=== PATIENT | female | born 2000 | race Caucasian/White ===

== ENCOUNTER 2023-10-28 13:49 | Outpatient (CLI) | payer BC ==
[~2023-10-28] VITALS: Ht 157.5 cm; Wt 148.2 kg
[~2023-10-28 13:49] MED LIST: GLUCOPHAGE1000 MG PO; LANTUS SOLOS100 U/ML SQ; NOVOLOG FLEX100 U/ML SQ; PRENATAL TABLET PO
[2023-10-28 14:20] VITALS: BP 118/71; PULSE 90
[2023-10-28] MEDS ORDERED: LR 1,000 ML IV PRN (14:30)
[2023-10-28 14:35] VITALS: BP 123/70; PULSE 91
[2023-10-28 15:00] VITALS: BP 110/66; PULSE 113; TEMP 98.5
[2023-10-28 15:22] LABS: BASO % 0.2 % (0.0-2.0); EOS # 0.1 K/mm3 (0.0-0.7); EOS % 0.5 % (0.0-4.0); GRAN # 8.4 K/mm3 (1.4-6.5); GRAN % 76.4 % (42.2-75.2); HEMOGLOBIN 11.4 g/dl (12.5-16.0); LYMPH # 1.6 K/mm3 (1.2-3.4); LYMPH % 14.6 % (20.0-51.0); MEAN CELL VOLUME 80 fl (80.0-100.0); MEAN CORPUSCULAR HEMOGLOBIN 26 pg (27-31); MEAN CORPUSCULAR HGB CONC 33 g/dl (33.0-37.0); MEAN PLATELET VOLUME 10.1 fl (7.4-10.4); MONO # 0.8 K/mm3 (0.1-0.6); MONO % 7.6 % (1.7-9.3); PLATELET COUNT 290 K/mm3 (130-400); RED BLOOD COUNT 4.35 M/mm3 (4.10-5.30); REDCELL DISTRIBUTION WIDTH-CV 13.2 % (11.5-14.5)
[2023-10-28 15:24] LABS: HEMATOCRIT 34.9 % (37.0-47.0)
[2023-10-28 15:28] LABS: ALBUMIN 2.3 gm/dL (3.5-5.0); BILIRUBIN,TOTAL 0.3 mg/dL (0.2-1.2); CALCIUM 7.9 mg/dL (8.4-10.2); CREATININE, serum 0.58 mg/dL (0.57-1.11); TOTAL PROTEIN 6.1 gm/dL (6.2-8.1)
[2023-10-28 16:00] VITALS: BP 135/85; PULSE 103
--- NOTE | 2023-10-28 16:21 | NUR ---
1600 ALL DISCHARGE INSTRUCTIONS GIVEN TO PATIENT WITH VERBAL UNDERSTNDING. ORDERS FROM DR DIXON. FHT 130 BBAY ACTIVE. BP 135/85
== END 2023-10-28 16:10 | disposition home or self-care (01) ==
LOC: LDRO 13:49
PROVIDERS: Obstetrics & Gynecology
DX: Z34.93 Encounter for supervision of normal pregnancy, unspecified, third trimester (principal); Z3A.38 38 weeks gestation of pregnancy

== ENCOUNTER 2023-11-03 05:15 | Inpatient (IN) | payer BC ==
[~2023-11-03] VITALS: Ht 157.6 cm; Wt 148.2 kg
[2023-11-03] VITALS (17 sets, daily range): BP systolic 92–143; BP diastolic 55–87; PULSE 78–109; TEMP 98.2–98.5
--- NOTE | 2023-11-03 05:28 | NUR ---
PT PRESENTS TO L&D FOR SCHEDULED C/S. PT CHANGED INTO GOWN TO BED AND MONITORS ON. BABY IS VERY ACTIVE AND HARD TO GET A STRIP ON FHR. MONITORS HELD IN PLACE BY NURSE. CONSENTS SIGNED QUESTIONS ANSWERED. IV STARTED IN LEFT HAND AND BLOOD DRAWN AND SENT TO LAB.
[2023-11-03] MEDS ORDERED: LR 1,000 ML IV SCH ×2 (05:30→07:00)
[2023-11-03 06:01] LABS: BASO % 0.2 % (0.0-2.0); EOS # 0.1 K/mm3 (0.0-0.7); EOS % 0.9 % (0.0-4.0); GRAN # 7.5 K/mm3 (1.4-6.5); GRAN % 71.2 % (42.2-75.2); HEMOGLOBIN 11.2 g/dl (12.5-16.0); LYMPH # 1.9 K/mm3 (1.2-3.4); LYMPH % 18.5 % (20.0-51.0); MEAN CELL VOLUME 80 fl (80.0-100.0); MEAN CORPUSCULAR HEMOGLOBIN 26 pg (27-31); MEAN CORPUSCULAR HGB CONC 33 g/dl (33.0-37.0); MONO # 0.9 K/mm3 (0.1-0.6); MONO % 8.5 % (1.7-9.3); PLATELET COUNT 286 K/mm3 (130-400); RED BLOOD COUNT 4.26 M/mm3 (4.10-5.30); REDCELL DISTRIBUTION WIDTH-CV 13.4 % (11.5-14.5)
[2023-11-03 06:20] LABS: HEMATOCRIT 33.9 % (37.0-47.0)
[2023-11-03 06:43] LABS: ALBUMIN 2.1 gm/dL (3.5-5.0); BILIRUBIN,TOTAL 0.2 mg/dL (0.2-1.2); CALCIUM 8.8 mg/dL (8.4-10.2); CREATININE, serum 0.59 mg/dL (0.57-1.11); POTASSIUM 4.1 mmol/L (3.5-4.5); TOTAL PROTEIN 5.8 gm/dL (6.2-8.1)
[2023-11-03] MEDS ORDERED: Ondansetron 4 MG/2 ML VIAL ONE (06:57)
[2023-11-03] MEDS ORDERED: Oxytocin 10 UNITS/ML VIAL ONE (06:57)
[2023-11-03] MEDS ORDERED: NS 10 ML IV ONE ×2 (06:57)
[2023-11-03] MEDS ORDERED: Ketorolac 30 MG/ML VIAL ONE (06:57)
[2023-11-03] MEDS ORDERED: Ondansetron 4 MG/2 ML VIAL IV SCH (07:00)
[2023-11-03] MEDS ORDERED: LR 1,000 ML IV ONE (08:07)
[2023-11-03] MEDS ORDERED: Magnes Hydrox (MOM) 80 MG/ML 30 ML CUP PO PRN (08:30)
[2023-11-03] MEDS ORDERED: Loratadine 10 MG TAB PO PRN (08:30)
[2023-11-03] MEDS ORDERED: Prenatal Vitamins/Iron/FA TAB PO SCH (09:00)
[2023-11-03 09:20] LABS: TRICYCLIC ANTIDEPRESS URINE NEGATIVE (NEGATIVE)
[2023-11-03] MEDS ORDERED: metFORMIN 500 MG TAB PO SCH (10:14)
[2023-11-03] MEDS ORDERED: oxyCODONE 5 MG TAB PO PRN (10:15)
[2023-11-03] MEDS ORDERED: Acetaminophen 500 MG TAB PO SCH (10:15)
[2023-11-03] MEDS ORDERED: Measles/Mumps/Rubella Virus Vaccine Live w Diluent 0.5 ML VIAL SQ SCH (10:15)
[2023-11-03] MEDS ORDERED: Morphine 4 MG/ML VIAL IV PRN (10:15)
[2023-11-03] MEDS ORDERED: LR 1,000 ML IV PRN (10:15)
[2023-11-03] MEDS ORDERED: Naloxone 0.4 MG/ML VIAL IV PRN (10:15)
[2023-11-03] MEDS ORDERED: Ondansetron 4 MG/2 ML VIAL IV PRN (10:15)
[2023-11-03] MEDS ORDERED: Ibuprofen 600 MG TAB PO SCH (14:30)
[2023-11-03] MEDS ORDERED: Sennosides/Docusate 8.6-50 MG TAB PO SCH (17:00)
[2023-11-03] MEDS ORDERED: traZODone 50 MG TAB PO PRN (21:00)
[2023-11-03] MEDS ORDERED: Insulin Glargine-ygfn (Lantus) SQ SCH (21:00)
[2023-11-04 05:09] LABS: HEMATOCRIT 28.1 % (37.0-47.0); HEMOGLOBIN 9.3 g/dl (12.5-16.0)
[2023-11-04] MEDS ORDERED: TYLENOL 500MG500 MG PO (08:18)
[2023-11-04] MEDS ORDERED: ROXICODONE 55 MG/TAB PO (08:18)
[2023-11-04] MEDS ORDERED: IBU600 MG PO (08:18)
[2023-11-04 08:57] VITALS: BP 135/92; PULSE 104; TEMP 97.7
--- NOTE | 2023-11-04 10:17 | NUR ---
Initial visit attempt; Patient sleeping, Career And Transition Teacher left card offering congratulations and God's blessings for the of their daughter and information regarding the availability of [facility] at our [facility].
--- NOTE | 2023-11-04 11:40 | NUR ---
Hvac Engineer was consulted to visit with patient based on history of delta 8 use. Patient was negative for illegal substances during and at time of delivery. POOJA met with patient and father of baby, Sammy at bedside. This is first baby for both patient and Sammy. Patient felt they have a good support system with Sammy's family living here locally and her family in the [place] area. Patient has all needed supplies for baby including bassinet, crib, diapers, wipes, etc. Patient also has the carseat installed and had the fire deptartment check it. Patient has considered applying for WIC but worries she may make too much money. Patient is employed at [employer] and Sammy is employed at [employer]. Patient plans to take two months off of work and has talked with family about providing childcare once she returns. POOJA discussed history of anxiety and patient stated SAMMIE Posadas at [facility] prescribed her Lexapro, but she only took it for about a week. Patient stated she saw some videos on [employer] that said it was not safe to take Lexapro during so she stopped. Patient feels she is coping well at this time and does not want to be set up with any therapy services. Patient goes to [facility] for primary care and POOJA encouraged her to talk with her provider about her anxiety and options for medications if she has concerns. POOJA provided the above update to Dr. Sanchez.
[2023-11-04 17:07] VITALS: BP 126/90; PULSE 90; TEMP 97.6
[2023-11-04 19:32] VITALS: BP 116/88; PULSE 89; TEMP 98
[2023-11-05 08:30] VITALS: BP 126/80; PULSE 98; TEMP 98.6
== END 2023-11-05 10:20 | disposition home or self-care (01) | DRG 787 ==
LOC: OB 05:15
PROVIDERS: Obstetrics & Gynecology; ADMIT Obstetrics & Gynecology
PROC: 10D00Z1 Extraction of Products of Conception, Low, Open Approach (ICD-10-PCS; principal; 2023-11-03)
DX: O24.424 Gestational diabetes mellitus in childbirth, insulin controlled (principal); D62 Acute posthemorrhagic anemia; Z37.0 Single live birth; O90.81 Anemia of the puerperium; O77.0 Labor and delivery complicated by meconium in amniotic fluid; O24.425 Gestational diabetes mellitus in childbirth, controlled by oral hypoglycemic drugs; O34.40 Maternal care for other abnormalities of cervix, unspecified trimester; O99.824 Streptococcus B carrier state complicating childbirth; O99.214 Obesity complicating childbirth; O99.344 Other mental disorders complicating childbirth; F41.9 Anxiety disorder, unspecified; Z3A.39 39 weeks gestation of pregnancy
CPT/HCPCS: J0665; J0690; J1100; J1815; J1885; J2405; J2590; J2765; J7120

== ENCOUNTER 2024-03-22 20:51 | Emergency (ER) | payer BC ==
[~2024-03-22] VITALS: Ht 157.5 cm; Wt 136.4 kg
[~2024-03-22 20:51] MED LIST changes: +IBU600 MG PO; +ROXICODONE 55 MG/TAB PO; +TYLENOL 500MG500 MG PO
[2024-03-22 20:55] VITALS: TEMP 97.6
[2024-03-22 21:57] LABS: BASO # 0.1 K/mm3 (0.0-0.2); BASO % 0.4 % (0.0-2.0); EOS # 0.1 K/mm3 (0.0-0.7); EOS % 0.7 % (0.0-4.0); GRAN # 10.7 K/mm3 (1.4-6.5); HEMATOCRIT 38.6 % (37.0-47.0); HEMOGLOBIN 12.2 g/dl (12.5-16.0); LYMPH # 1.5 K/mm3 (1.2-3.4); LYMPH % 11.7 % (20.0-51.0); MEAN CELL VOLUME 78 fl (80.0-100.0); MEAN CORPUSCULAR HEMOGLOBIN 25 pg (27-31); MEAN CORPUSCULAR HGB CONC 32 g/dl (33.0-37.0); MONO # 0.8 K/mm3 (0.1-0.6); MONO % 5.8 % (1.7-9.3); PLATELET COUNT 327 K/mm3 (130-400); RED BLOOD COUNT 4.95 M/mm3 (4.10-5.30); REDCELL DISTRIBUTION WIDTH-CV 14.6 % (11.5-14.5)
[2024-03-22] MEDS ORDERED: Ketorolac 15 MG/ML VIAL IV ONE (22:00)
[2024-03-22] MEDS ORDERED: NS 1,000 ML IV ONE (22:00)
[2024-03-22] MEDS ORDERED: Ondansetron 4 MG/2 ML VIAL IV ONE (22:00)
[2024-03-22 22:05] LABS: URINE COLOR Yellow (YELLOW)
[2024-03-22 22:06] LABS: URINE APPEARANCE CLEAR (CLEAR/HAZY); URINE BLOOD Negative (NEGATIVE); URINE GLUCOSE Negative (NEGATIVE); URINE KETONE Negative (NEGATIVE); URINE NITRATE Negative (NEGATIVE); URINE PROTEIN(semi-quant) Negative (NEGATIVE); URINE UROBILINOGEN 0.2 E.U/dL (0.2-1.0)
[2024-03-22 22:08] LABS: COLLECTION METHOD CLEAN CATCH
[2024-03-22 22:16] LABS: ALBUMIN 3.4 g/dL (3.5-5.0); BILIRUBIN,TOTAL 0.4 mg/dL (0.2-1.2); CALCIUM 9.1 mg/dL (8.4-10.2); CREATININE, serum 0.79 mg/dL (0.57-1.11); POTASSIUM 4.1 mEq/L (3.5-4.5); TOTAL PROTEIN 7.2 g/dl (6.2-8.1)
[2024-03-22] MEDS ORDERED: Iohexol 300 - 100 ML VIAL IV ONE (22:31)
[2024-03-22] MEDS ORDERED: NS 100 ML IV SCH (22:32)
[2024-03-22] MEDS ORDERED: BENTYL 10MG10 MG/CAP PO (23:37)
[2024-03-22 23:44] VITALS: BP 119/73; PULSE 69
== END 2024-03-22 23:44 | disposition home or self-care (01) ==
LOC: COL.ER 20:51
PROVIDERS: Emergency Medicine
DX: K57.30 Diverticulosis of large intestine without perforation or abscess without bleeding (principal)
CPT/HCPCS: J1885; J2405; J7030; Q9967